=== PATIENT | male | born 1970 | race Caucasian/White ===

== ENCOUNTER 2018-05-08 21:53 | Emergency (ER) | payer OTHER ==
[2018-05-08] MEDS ORDERED: IBUPROFEN 600 MG TABLET PO STA (22:15)
[2018-05-08] MEDS: oxyCODONE 5 MG TABLET PO STA ×2 (22:25)
--- NOTE | 2018-05-08 22:37 | ED Physician Documentation ---
PD HPI HEADACHE - Stated complaint Stated Complaint: EAR/FACE PAIN - Chief complaint Chief Complaint: Heent - History obtained from History obtained from: Patient - History of Present Illness Timing - onset: Enter time (12:00 (noon)), Today Timing - duration: Minutes Timing - details: Abrupt onset, Intermittant Worst headache ever?: No: Worst headache ever? Location: Right Quality: Aching, Stabbing Associated symptoms: No: Fever, Stiff neck, Nausea, Vomiting, Weakness, Numbness, Syncope, Seizure, Eye pain, Vision changes Improved by: Nothing Worsened by: Other (no exacerbating factors) Contributing factors: No: Anticoagulated, Possible carbon monoxide, Hypertension, Recent illness, Trauma Similar symptoms before: Has not had sx before Recently seen: Not recently seen - Additional information Additional information: since noon today, episodic, severe right-sided facial pain from right preauricular area radiating to right retroorbital and right face/jaw. lasts seconds, sometimes minutes. no apparent triggers Review of Systems Constitutional: reports: Reviewed and negative Eyes: reports: Reviewed and negative Ears: reports: Reviewed and negative Nose: reports: Reviewed and negative Throat: reports: Reviewed and negative Neurologic: reports: Headache. denies: Focal weakness, Numbness PD PAST MEDICAL HISTORY - Past Medical History Past Medical History: Yes Neuro: Other Other Past Medical History: Minears disease - Past Surgical History Past Surgical History: Yes General: Cholecystectomy, Other Ortho: Other - Present Medications Home Medications: Ambulatory Orders Medication Instructions Recorded Confirmed Levothyroxine Sodium [Synthroid] 150 mcg PO 05/08/18 Meclizine [Antivert] 12.5 mg PO 05/08/18 - Allergies Allergies/Adverse Reactions: Allergies Allergy/AdvReac Type Severity Reaction Status Date / Time No Known Drug Allergies Allergy Verified 05/08/18 22:01 - Social History Does the pt smoke?: No Smoking Status: Never smoker Does the pt drink ETOH?: Yes Does the pt have substance abuse?: No - Immunizations Immunizations are current?: Yes - POLST Patient has POLST: No PD ED PE NORMAL - Vitals Vital signs reviewed: Yes - General General: Alert and oriented X 3, No acute distress, Well developed/nourished - HEENT HEENT: Atraumatic, PERRL, EOMI, Ears normal, Moist mucous membranes, Pharynx benign, Dentition benign - Neck Neck: Supple, no meningeal sign - Neuro Neuro: Alert and oriented X 3, facilities custodian 2-12 intact, No motor deficit, No sensory deficit, Normal speech Results - Vitals Vitals: Vital Signs - 24 hr 05/08/18 05/08/18 21:57 23:06 Temperature 36.3 C L Heart Rate 86 71 Respiratory 18 18 Rate Blood Pressure 154/103 H 156/101 H O2 Saturation 95 96 Oxygen O2 Source Room air PD MEDICAL DECISION MAKING - ED course Complexity details: considered differential, d/w patient ED course: no exanthem (still would consider shingles, although paroxysmal nature of pain would be unusual). several aspects/ features s/o trigeminal neuralgia. also consider sinusitis and/ or OM (does not feel sinus/ear congestion, though, and, again, paroxysms would be unusual for this) Departure - Departure Disposition: 01 Home, Self Care Clinical Impression: Facial pain, acute Condition: Good Instructions: ED Acute Pain [facility] Follow-Up: JOSÉ LUIS Ricketts [Provider Group] Discharge Date/Time: 05/08/18 23:07
[2018-05-08 23:08] VITALS: BP 156/101
== END 2018-05-08 23:07 | disposition home or self-care (01) ==
LOC: ED 21:53
DX: G50.1 Atypical facial pain (principal)
CPT/HCPCS: 99283; A9270